=== PATIENT | male | born 1945 | race Caucasian/White ===

== ENCOUNTER 2020-06-21 11:03 | Outpatient (REF) | payer MEDICARE, SELFPAY ==
[2020-06-21 12:50] LABS: Hematocrit 49.3 % (42-52); Hemoglobin 16.1 g/dl (14.0-18.0); Mean Corpuscular HGB Conc 32.7 g/dl (31.0-36.0); Mean Corpuscular Hemoglobin 31.2 pg (27.0-33.0); Mean Corpuscular Volume 95.5 fL (80-98); Mean Platelet Volume 11.6 fL (9.4-12.4); Platelet Count 182 X10*3/uL (160-400); Red Blood Count 5.16 X10*6/uL (4.60-5.80); White Blood Count 11.6 X10*3/uL (4.8-10.8)
[2020-06-21 13:15] LABS: Alanine Aminotransferase 27 U/L (0-40); Albumin Level 4.3 g/dL (3.5-5.0); Alkaline Phosphatase 58 U/L (39-117); Anion Gap 11 (12-20); Aspartate Amino Transferase 24 U/L (5-37); Bilirubin Total 0.5 mg/dL (0.0-1.0); Blood Urea Nitrogen 19 mg/dL (9-16); Calcium 9.5 mg/dL (8.4-10.2); Carbon Dioxide 30 mmol/L (22-29); Chloride 104 mmol/L (96-108); Cholesterol 141 mg/dL; Estimated Glomerular Filt Rate > 60; Glucose Random 98 mg/dL (60-115); HDL Cholesterol 35 mg/dL; Iron 107 mcg/dL (45-160); Magnesium 2.3 mg/dL (1.6-2.6); Percent Iron Saturation 33 % (15-50); Potassium 5.2 mmol/l (3.3-5.1); Sodium 140 mmol/L (135-145); Total Iron Binding Capacity 326 mcg/dL (228-428); Total Protein 7.1 g/dL (6.5-8.0); Unsaturated Iron Binding 219 ug/dL
[2020-06-21 13:37] LABS: Ferritin 142 ng/mL (20-250); TSH reflex Free T4 0.57 mIU/mL (0.32-4.0); Vitamin B12 1015 pg/mL (200-900); Vitamin D 25-OH Total 25.8 ng/mL (>30)
[2020-06-21 13:40] LABS: Creatinine Urine 143.11 mg/dL; Microalbum/Creatinine Ratio Ur 25.1 ug/mg cr
[2020-06-22 08:57] LABS: LDL Cholesterol Direct 87 mg/dL (<100)
[2020-06-28 05:06] LABS: N-Telopeptide 53 (see note); NTXCreaRU 140 mg/dL (20-320)
== END 2020-06-21 11:04 | disposition home or self-care (01) ==
LOC: HO.LAB 11:03
PROVIDERS: PCP Internal Medicine; Visit Provider Internal Medicine
DX: M81.0 Age-related osteoporosis without current pathological fracture (principal); Z00.00 Encounter for general adult medical examination without abnormal findings; F17.200 Nicotine dependence, unspecified, uncomplicated; J43.9 Emphysema, unspecified; I10 Essential (primary) hypertension
CPT/HCPCS: 36415; 80053; 82043; 82306; 82465; 82523; 82607; 82728; 83540; 83718; 83721; 83735; 84443; 85027